=== PATIENT | female | born 2000 | race Hispanic/Latino ===

== ENCOUNTER 2020-05-27 03:16 | Emergency (ER) | payer BC, SELFPAY ==
[2020-05-27 03:30] VITALS: BP 129/93; PULSE 145; RESP 18; TEMP 38.3; O2SAT 100
--- NOTE | 2020-05-27 03:35 | ED.GENADULT ---
HPI - General Adult General Chief complaint: Unspecified Stated complaint: sore throat/back pain Time Seen by Provider: 05/27/20 03:27 Source: patient Mode of arrival: ambulatory Limitations: no limitations History of Present Illness HPI narrative: A 20-year-old female [facility] with complaints of a sore throat, back pain and generally feeling fatigued. Patient states that her symptoms are started the other day. She notes a temperature as high as 102.8. Patient does note a lot of pain in her back of her throat and the pain in her back has been the biggest issues. Related Data Home Medications Medication Instructions Recorded Confirmed norethindrone ac-eth estradiol 1 tablet PO DAILY 05/27/20 05/27/20 [June ()] Allergies Allergy/AdvReac Type Severity Reaction Status Date / Time No Known Allergies Allergy Verified 05/27/20 03:37 Review of Systems Review of Systems: Narrative: CONSTITUTIONAL: Denies fever, chills, or sweats. EYES: Denies visual changes, redness, or discharge. ENT: Denies rhinorrhea, congestion, or otalgia. Endorses sore throat CARDIOVASCULAR: Denies chest pain, palpitations, or edema. RESPIRATORY: Denies cough or dyspnea. GASTROINTESTINAL: Denies abdominal pain, nausea, vomiting, or diarrhea. GENITOURINARY: Denies dysuria or hematuria. SKIN: Denies rash or itching. MUSCULOSKELETAL: Denies joint pain, or myalgia. Endorses back pain NEUROLOGIC: Denies headache, numbness, dizziness, or weakness. PSYCHIATRIC: Denies anxiety or depression. [facility] Social History Social History Gender identity (if verbalized by the patient): Female Exam Narrative: Exam Narrative: GENERAL: Well-appearing, well-nourished, and in no acute distress. HEAD: Normocephalic, atraumatic. EYES: PERRLA and EOMI. ENT: Nares clear, no rhinorrhea or epistaxis. Mucous membranes moist. Oropharyngeal tonsillar edema with erythema. No specific exudates seen. NECK: Supple. No adenopathy or masses. No carotid bruits or JVD CHEST: Clear to auscultation. No respiratory distress. No wheezes rales or rhonchi HEART: Tachycardic. No murmur heard. Normal peripheral pulses. ABDOMEN: Soft, nontender, nondistended, normal active bowel sounds. EXTREMITIES: Normal range of motion. No edema. SKIN: Warm, dry, no rash. NEURO: No focal deficits. Alert and oriented x3. PSYCH: Normal mood and affect. Course Reevaluation(s) Reevaluation #1: Reevaluated patient and provided care update. She notes that after the medication she is feeling much much better. Patient's heart rate has been noted to significantly improved. Patient's was in the 160s to 170s on arrival. She is now down to the consistent 1 teens. This is still a little bit more elevated and I feel comfortable sending the patient home. We will go ahead and administer another fluid bolus and continue to observe the patient. Time: 04:37 Reevaluation #2: After second liter of fluids the patient's vitals continue to improve. Currently looking at the monitor the patient's heart rate has been as low as 100. Vital signs otherwise appear within normal limits. We will go ahead and plan for discharge. Time: 05:43 Vital Signs Vital signs: Vital Signs Temperature 38.3 C H 05/27/20 03:30 Pulse Rate 145 H 05/27/20 03:30 Respiratory Rate 18 05/27/20 03:30 Blood Pressure 129/93 H 05/27/20 03:30 Pulse Oximetry 100 05/27/20 03:30 Temperature 38.3 C H 05/27/20 03:30 Pulse Rate 113 H 05/27/20 04:48 Respiratory Rate 18 05/27/20 04:48 Blood Pressure 120/72 05/27/20 04:48 Pulse Oximetry 99 05/27/20 04:48 Medical Decision Making [facility] Narrative Medical decision making narrative: In brief this is a 20-year-old female who presented to the emergency department with complaints. Patient's first and foremost complaint was a sore throat and dysphagia. My suspicion was for possible str
--- NOTE | 2020-05-27 03:38 | ECG_ITS ---
Measurements Intervals [place] Rate: 136 P: 65 NM: 129 QRS: 50 QRSD: 99 T: 6 QT: 281 QTc: 424 Interpretive Statements SINUS TACHYCARDIA INCOMPLETE RIGHT BUNDLE BRANCH BLOCK NONSPECIFIC T-WAVE ABNORMALITY- ANT/INF LEADS ABNORMAL ECG Electronically Signed On 05-27-2020 7:13:27 [employer] SUPERVISOR by Byron Stanford D.O.
[2020-05-27 03:40] VITALS: PULSE 168
[2020-05-27] MEDS: LACTATED RINGERS 1,000 ML 999 ML IV CONT ×2 (03:44→04:48)
[2020-05-27] MEDS: ONDANSETRON INJ 4 MG/2 ML VIAL IV PUSH (03:44)
[2020-05-27] MEDS: DEXAMETHASONE SOD PHOS INJ 4 MG/ML VIAL 10 MG IV PUSH (03:46)
[2020-05-27] MEDS: KETOROLAC 15 MG/ML VIAL (*BKC) IV PUSH (03:47)
[2020-05-27 03:48] LABS: Basophils Percent Auto 0.2 % (0.2-1.2); Eosinophils Percent Auto 0.1 % (0-4.4); Hematocrit 38.4 % (37.0-47.0); Hemoglobin 13.4 g/dL (12.0-15.0); Immature Granulocyte Absolute 0.08 K/mm3 (0.00-0.031); Immature Granulocyte Percent A 0.6 % (0-0.5); Lymphocytes Absolute Auto 0.93 K/mm3 (0.9-3.2); Lymphocytes Percent Auto 6.4 % (18.3-44.2); Mean Corpuscular HGB Conc 34.9 g/dl (32-36); Mean Corpuscular Hemoglobin 29.1 pg (26-34); Mean Corpuscular Volume 83.3 fl (80-100); Mean Platelet Volume 11.4 fl (7.4-10.4); Monocytes Absolute Auto 1.2 K/mm3 (0.1-0.6); Monocytes Percent Auto 7.9 % (2.6-8.5); Neutrophils Absolute Auto 12.3 K/mm3 (1.3-6.7); Neutrophils Percent Auto 84.8 % (45.5-73.1); Platelet Count Result 199 k/mm3 (150-375); Red Blood Count 4.61 M/mm3 (4.2-5.4); Red Cell Distribution Width 12.3 % (11.5-14.5); White Blood Count 14.5 K/mm3 (4.5-10.0)
[2020-05-27 04:00] LABS: Alanine Aminotransferase 17 U/L (4-35); Albumin Level 4.5 g/dL (3.5-5.1); Alkaline Phosphatase 84 U/L (38-126); Anion Gap 10 mmol/L (8-16); Aspartate Amino Transferase 26 U/L (14-36); Bilirubin,Total 0.7 mg/dL (0.2-1.3); Blood Urea Nitrogen 9 mg/dL (7-17); Calcium 9.2 mg/dL (8.4-10.2); Carbon Dioxide 24 mmol/L (22-30); Chloride 100 mmol/L (98-107); Estimated CRCL calculation 92 ml/min; Estimated Glomerular Filt Rate > 60; Glucose 133 mg/dL (65-105); Sodium 134 mmol/L (137-145)
[2020-05-27 04:48] VITALS: BP 120/72; PULSE 113; RESP 18; O2SAT 99
[2020-05-27 05:57] VITALS: BP 103/58; PULSE 106; RESP 18; O2SAT 95
[2020-05-27 17:38] LABS: SARS-CoV-2 RNA PCR Negative
== END 2020-05-27 06:01 | disposition home or self-care (01) ==
PROVIDERS: Emergency Provider Emergency Medicine
DX: J02.0 Streptococcal pharyngitis (principal); A40.0 Sepsis due to streptococcus, group A; R00.0 Tachycardia, unspecified; I45.10 Unspecified right bundle-branch block; R94.31 Abnormal electrocardiogram [ECG] [EKG]
CPT/HCPCS: 36415; 80053; 85025; 87880; 93005; 96361; 96372; 96374; 96375; 99284; C9803; J0558; J1100; J1885; J2405; J7120; U0003; U0005